=== PATIENT | female | born 1990 | race American Indian/Alaskan Native ===

== ENCOUNTER 2017-09-11 00:18 | Emergency (ER) | payer MEDICAID ==
[2017-09-11 00:28] VITALS: O2SAT 100
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
[2017-09-11 02:56] VITALS: BP 99/71; PULSE 78; RESP 18; TEMP 98.6
--- NOTE | 2017-09-11 13:50 | CT ---
PROCEDURE: CT MAXILLOFACIAL BONES WITHOUT CONTRAST HISTORY: right orbital / maxillary swelling, laceration COMPARISON: None TECHNIQUE: Contiguous axial CT images of the maxillofacial bones were obtained. Coronal and sagittal reformats were generated. Radiation dose: Total exam DLP = 881.85 mGy-cm. This CT exam was performed using one or more of the following dose reduction techniques: Automated exposure control, adjustment of the mA and/or kV according to patient size, and/or use of iterative reconstruction technique. FINDINGS: NASAL BONES: Comminuted mildly depressed right nasal fracture. Probable nondisplaced left nasal fracture. Anterior maxillary spine is intact. ORBITS: No orbital fracture. Globes are rounded and symmetric. No orbital hemorrhage or emphysema. PARANASAL SINUSES/ MASTOIDS: Clear. MAXILLA: No fracture. Right pre maxillary soft tissue swelling. This extends into the right inferior palpebrum. MANDIBLE/ TEMPOROMANDIBULAR JOINTS: Unremarkable. SKULL BASE: Unremarkable. TEMPORAL BONES: Middle ears and mastoid grossly unremarkable. OTHER FINDINGS: None. IMPRESSION: Bilateral nasal fracture, depressed and comminuted on the right. No other significant abnormality. Preliminary interpretation of this examination was reported by [facility] at 2:34 a.m. on 09/11/2017. There is concurrence of this report with the preliminary interpretation.
== END 2017-09-11 03:06 | disposition home or self-care (01) ==
LOC: C.ER 00:18
DX: S01.81XA Laceration without foreign body of other part of head, initial encounter (principal); S05.11XA Contusion of eyeball and orbital tissues, right eye, initial encounter; Y04.0XXA Assault by unarmed brawl or fight, initial encounter

== ENCOUNTER 2017-11-25 17:35 | Emergency (ER) | payer MEDICAID ==
[2017-11-25 17:47] VITALS: TEMP 102.7
[2017-11-25 18:47] LABS: SQUAMOUS EPITHIAL 9 /hpf (0-5); URINE BACTERIA OCC (<OCC); URINE BILIRUBIN NEGATIVE (NEGATIVE); URINE BLOOD 2+ (NEGATIVE); URINE CLARITY Hazy (Clear); URINE COLOR Yellow (YELLOW); URINE GLUCOSE (UA) NORMAL (Normal); URINE LEUKOCYTE ESTERASE 3+ Leu/uL (Negative); URINE PROTEIN 1+ mg/dL (NEGATIVE); URINE UROBILINOGEN NORMAL mg/dL (0.2-1.0); WBC CLUMPS FEW /hpf
--- NOTE | 2017-11-25 19:00 | C.PDOC ---
History Of Present Illness 27 year old female presents to the emergency department with complaints of suprapubic pain, bilateral lower back pain, and bladder "cramping" with urination for the last five days. Patient also reports a fever with an onset yesterday. She also states that she is nauseous, and reports her last menstrual period was one month ago. SUPRAPUB PAIN, B/L LBP , BLADDER "CRAMPING" W URINATION X 5 DAYS. FEVER ONSET YEST. +NAUSEA. LMP 1 MO EXAM NONTOXIC ABD NEG NO CVAT REMAINDER NEG Time Seen by Provider: 11/25/17 18:33 Chief Complaint (Nursing): Female Genitourinary History Per: Patient History/Exam Limitations: no limitations Onset/Duration Of Symptoms: Hrs (5) Current Symptoms Are (Timing): Still Present Quality Of Discomfort: "Pain" Associated Symptoms: Fever, Nausea, Back Pain (lower), Urinary Symptoms ( bladder "cramping") Last Menstral Period: 1 month ago Past Medical History Reviewed: Historical Data, Nursing Documentation, Vital Signs Vital Signs: Last Vital Signs Temp 102.7 F H 11/25/17 17:43 Pulse 96 H 11/25/17 17:43 Resp 18 11/25/17 17:43 BP 107/73 11/25/17 17:43 Pulse Ox 98 11/25/17 19:09 - Medical History PMH: No Chronic Diseases Surgical History: No Surg Hx Family History: States: No Known Family Hx - Social History Hx Alcohol Use: No Hx Substance Use: No - Immunization History Hx Tetanus Toxoid Vaccination: No Hx Influenza Vaccination: No Hx Pneumococcal Vaccination: No Review Of Systems Except As Marked, All Systems Reviewed And Found Negative. Constitutional: Positive for: Fever Gastrointestinal: Positive for: Nausea, Abdominal Pain (suprapubic) Genitourinary: Positive for: Other (bladder cramp with urination) Musculoskeletal: Positive for: Back Pain Physical Exam - Physical Exam Appears: Non-toxic, No Acute Distress Skin: Warm Head: Atraumatic, Normacephalic Nose: Normal Neck: Normal, Supple Chest: Symmetrical, No Tenderness Cardiovascular: Rhythm Regular, No Murmur Respiratory: Normal Breath Sounds, No Rales, No Rhonchi, No Wheezing Gastrointestinal/Abdominal: Soft, No Tenderness, No Guarding, No Rebound Back: No CVA Tenderness Extremity: Normal ROM (all extremities) Neurological/Psych: Oriented x3, Normal Speech, Normal Cognition ED Course And Treatment - Laboratory Results Result Diagrams: 11/25/17 19:52 11/25/17 19:52 O2 Sat by Pulse Oximetry: 98 (RA) Pulse Ox Interpretation: Normal Progress Note: Plan: BMP. CBC. Rocephin 1gm NaCl IV Fluids. Toradol 30mg IVP. Tylenol 975mg PO. Zofran 4mg IVP. Urine C&S. POC Urine . Urinalysis Disposition Counseled Patient/Family Regarding: Studies Performed, Diagnosis, Need For Followup, Rx Given - Disposition Referrals: YOUR,PMD [Other] Disposition: HOME/ ROUTINE Disposition Time: 20:24 Condition: IMPROVED Prescriptions: levoFLOXacin [Levaquin] 500 mg PO DAILY #14 tab Metoclopramide [Reglan] 1 tab PO TID PRN #25 tab PRN Reason: Nausea/Vomiting Instructions: Kidney Infection (DC) Forms: [facility] (Dutch) - Clinical Impression Clinical Impression: Pyelonephritis - Scribe Statement The provider has reviewed the documentation as recorded by the Scribe (Kei Caceres) Provider Attestation: All medical record entries made by the Scribe were at my direction and personally dictated by me. I have reviewed the chart and agree that the record accurately reflects my personal performance of the history, physical exam, medical decision making, and the department course for this patient. I have also personally directed, reviewed, and agree with the discharge instructions and disposition.
[2017-11-25] MEDS ORDERED: Sodium Chloride 0.9% 1,000 ML IV ONE (19:02)
[2017-11-25 19:56] LABS: HEMOGLOBIN 12.2 g/dL (11.0-16.0); MEAN CELL VOLUME 79.3 fL (81.0-99.0); RBC 4.51 Mil/uL (3.80-5.20); RED CELL DISTRIBUTION WIDTH 13.9 % (11.5-14.5); WHITE BLOOD COUNT 11.7 K/uL (4.8-10.8)
[2017-11-25 20:13] LABS: BLOOD UREA NITROGEN 9 mg/dL (7-17); CALCIUM 8.8 mg/dl (8.6-10.4); GFR NON-AFRICAN AMERICAN > 60
[2017-11-25 20:45] VITALS: BP 123/78; PULSE 77; RESP 16; O2SAT 100
== END 2017-11-25 20:44 | disposition home or self-care (01) ==
LOC: C.ER 17:35
DX: N12 Tubulo-interstitial nephritis, not specified as acute or chronic (principal)
CPT/HCPCS: 80048; 81001; 85027; 87086; 87181; 96365; 96375; 99284; J0696; J1885; J2405; J7030